=== PATIENT | female | born 1970 | race Native Hawaiian/Other Pacific Islander ===

== ENCOUNTER 2018-10-05 10:24 | Outpatient (CLI) | payer MEDICARE, MEDICAID | END 2018-10-05 10:25 | disposition home or self-care (01) | LOC: C.MAMMO 10:24 | DX: Z12.31 Encounter for screening mammogram for malignant neoplasm of breast (principal) ==

== ENCOUNTER 2018-10-30 15:21 | Outpatient (CLI) | payer MEDICARE, MEDICAID | END 2018-10-30 15:22 | disposition home or self-care (01) | LOC: C.USIC 15:21 | DX: N85.2 Hypertrophy of uterus (principal) ==